=== PATIENT | male | born 1955 | race Caucasian/White ===

== ENCOUNTER 2019-09-26 13:23 | Emergency (ER) | payer OTHER, SELFPAY ==
--- NOTE | 2019-09-26 14:32 | PC.NURSE ---
pt left without being seen advised tot rerun if needed to be seen or s/s increased pt aware and agreeable to
== END 2019-09-26 14:32 | disposition left against medical advice (07) ==
DX: Z53.21 Procedure and treatment not carried out due to patient leaving prior to being seen by health care provider (principal)
CPT/HCPCS: 99199

== ENCOUNTER 2019-09-28 09:49 | Emergency (ER) | payer OTHER, SELFPAY ==
--- NOTE | ~2019-09-28 | US_ITS ---
EXAMINATION: US venous doppler [facility] DATE: 09/28/2019 11:23 INDICATION: Lower limb pain. TECHNIQUE: Grayscale ultrasound images without and with compression and Doppler ultrasound images of the bilateral lower extremity veins were obtained. COMPARISON: None. FINDINGS: The visualized portions of right common femoral vein, profunda (deep) femoral vein, femoral vein, pop liteal vein, peroneal veins, posterior tibial veins, and greater saphenous vein outflow are patent. The visualized portions of left common femoral vein, profunda femoral vein, femoral vein, popliteal v ein, peroneal veins, posterior tibial veins, and greater saphenous vein outflow are patent. IMPRESSION: 1. No deep venous thrombosis. Reviewed, dictated and finalized at location A.
--- NOTE | ~2019-09-28 | XR_ITS ---
EXAMINATION: XR chest 1V portable DATE: 09/28/2019 11:32 INDICATION: Swelling. TECHNIQUE: A single frontal view of the chest was obtained. COMPARISON: None. FINDINGS: The chest demonstrates clear lungs without pneumonia, pleural effusion, or pneumothorax. Th e heart size is normal. IMPRESSION: 1. No acute cardiopulmonary disease. Reviewed, dictated and finalized at location A.
[2019-09-28 09:52] VITALS: BP 150/67; PULSE 98; RESP 18; TEMP 36.3; O2SAT 100
[2019-09-28 10:53] LABS: Basophils Absolute Auto 0.1 K/mm3 (0.0-0.1); Basophils Percent Auto 0.6 % (0.2-1.2); Eosinophils Absolute Auto 0.4 K/mm3 (0-0.3); Eosinophils Percent Auto 3.4 % (0-4.4); Hematocrit 47.8 % (42.0-52.0); Hemoglobin 15.8 g/dL (14.0-18.0); Immature Granulocyte Absolute 0.06 K/mm3 (0.00-0.031); Immature Granulocyte Percent A 0.5 % (0-0.5); Lymphocytes Absolute Auto 2.67 K/mm3 (0.9-3.2); Mean Corpuscular HGB Conc 33.1 g/dl (32-36); Mean Corpuscular Hemoglobin 29.1 pg (26-34); Mean Platelet Volume 10.9 fl (7.4-10.4); Monocytes Absolute Auto 0.8 K/mm3 (0.1-0.6); Monocytes Percent Auto 6.7 % (2.6-8.5); Neutrophils Absolute Auto 8.1 K/mm3 (1.3-6.7); Neutrophils Percent Auto 66.8 % (45.5-73.1); Platelet Count Result 252 k/mm3 (150-375); Red Blood Count 5.43 M/mm3 (4.6-6.20); Red Cell Distribution Width 14.5 % (11.5-14.5); White Blood Count 12.2 K/mm3 (4.5-10.0)
[2019-09-28 11:03] LABS: INR 1.1; Prothrombin Time 13.9 Seconds (11.1-14.7)
[2019-09-28 11:04] LABS: Partial Thromboplastin Time 25.8 SECONDS (22.3-36.8)
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
--- NOTE | 2019-09-28 11:09 | PC.NURSE ---
Report to RYAN Acosta, to continue care.
[2019-09-28 11:10] LABS: Alanine Aminotransferase 22 U/L (4-50); Albumin Level 4.2 g/dL (3.5-5.1); Alkaline Phosphatase 166 U/L (38-126); Aspartate Amino Transferase 21 U/L (17-59); Bilirubin,Total 0.4 mg/dL (0.2-1.3); Blood Urea Nitrogen 19 mg/dL (9-20); Calcium 8.6 mg/dL (8.4-10.2); Carbon Dioxide 26 mmol/L (22-30); Chloride 101 mmol/L (98-107); Estimated CRCL calculation 68 ml/min; Estimated Glomerular Filt Rate > 60; Glucose 185 mg/dL (75-110); Potassium 3.5 mmol/L (3.4-5.0); Sodium 138 mmol/L (137-145)
[2019-09-28 11:19] LABS: NT Pro B Type Natriuretic Pept 180 PG/ML (5-100); Troponin I < 0.012 ng/mL (0.000-0.034)
[2019-09-28 11:42] VITALS: BP 148/92; PULSE 90; RESP 17; O2SAT 97
[2019-09-28 12:53] VITALS: BP 142/76; PULSE 90; RESP 14; O2SAT 97
== END 2019-09-28 13:13 | disposition home or self-care (01) ==
PROVIDERS: Emergency Medicine Emergency Medical Services; Emergency Provider Emergency Medicine
DX: L03.116 Cellulitis of left lower limb (principal); J44.9 Chronic obstructive pulmonary disease, unspecified; F17.200 Nicotine dependence, unspecified, uncomplicated
CPT/HCPCS: 36415; 71045; 80053; 83880; 84484; 85025; 85610; 85730; 86140; 93970; 99284

== ENCOUNTER 2019-10-31 08:01 | Outpatient (CLI) | payer OTHER, SELFPAY ==
--- NOTE | 2019-10-31 | ECHO_ITS ---
Patient Info Name: Jordan Crawford Age: 63 years : 1955 Gender: Male Ht: 72 in Wt: 205 lbs BSA: 2.19 m2 BP: 146 / 88 mmHg Heart Rhythm: Sinus Rhythm Technical Quality: Good Exam Date: 10/31/2019 8:30 AM Exam Location: [facility] Patient Status: Outpatient Admit Date: 10/31/2019 Staff Ordering Physician: Benito, Marlys ABBOTT Auto Claims Adjuster: Tory Kay RDCS Attending Provider: Benito, Marlys ABBOTT Referring Physician: Benito CONDON; Exam Type: CA echo doppler color flow Study Info Indications I50.9 - Heart failure, unspecified Complete two-dimensional, color flow and Doppler transthoracic echocardiogram is performed. Summary 1. Left ventricular chamber dimension is mildly enlarged. 2. Left ventricular systolic function is normal, estimated at 65-70%. 3. There is mildly increased left ventricular wall thickness. 4. The left ventricular diastolic function is grade I diastolic dysfunction. 5. Left atrial chamber dimension is mildly enlarged. 6. There is mild mitral valve regurgitation. 7. There is mild tricuspid valve regurgitation. 8. There is mild pulmonic regurgitation. Left Ventricle Left ventricular chamber dimension is mildly enlarged. Left ventricular systolic function is normal, estimated at 65-70%. There is mildly increased left ventricular wall thickness. The left ventricular diastolic function is grade I diastolic dysfunction. Right Ventricle Right ventricular chamber dimension is normal. Right ventricular systolic function is normal. Left Atria Left atrial chamber dimension is mildly enlarged. Right Atria Right atrial chamber dimension is normal. Atrial Septum Intact interatrial septum visualized by color flow imaging. Aortic Valve The aortic valve is trileaflet. There is mild aortic valve sclerosis. There is no aortic valve stenosis. There is trace aortic valve regurgitation. Pulmonic Valve The pulmonic valve is normal. There is no pulmonic valve stenosis. There is mild pulmonic regurgitation. Mitral Valve The mitral valve has thickened leaflets. There is no mitral valve stenosis. There is mild mitral valve regurgitation. Tricuspid Valve The tricuspid valve leaflets are normal. There is no significant tricuspid valve stenosis. There is mild tricuspid valve regurgitation. No pulmonary hypertension, estimated pulmonary arterial systolic pressure is 30 mmHg. Pericardium/Pleural The pericardium appears normal. There is no pericardial effusion. Inferior Vena Cava Normal inferior vena cava with >50% collapse upon inspiration consistent with normal right atrial pressure, 5 mmHg. Aorta The aortic root size at the sinus of Valsalva is normal. The prox ascending aorta size is normal. Left Ventricular Outflow Tract Name Value Normal LVOT 2D LVOT Diameter 2.0 cm LVOT Doppler LVOT Peak Gradient 6 mmHg LVOT Mean Gradient 3 mmHg LVOT VTI 27 cm LVOT VTI/AV VTI Ratio 0.8 LVOT Stroke Volume 84
== END 2019-10-31 08:02 | disposition home or self-care (01) ==
LOC: ANHCARD 08:04
PROVIDERS: PCP Physician Assistant; Visit Provider Physician Assistant
DX: I50.9 Heart failure, unspecified (principal); I51.7 Cardiomegaly; I08.1 Rheumatic disorders of both mitral and tricuspid valves
CPT/HCPCS: 93306

== ENCOUNTER 2020-09-07 14:44 | Outpatient (CLI) | payer OTHER, SELFPAY ==
--- NOTE | ~2020-09-07 | US_ITS ---
US arterial ankle brachial ind INDICATION: Peripheral vascular disease TECHNIQUE: Segmental pressures and plethysmographic and Doppler waveforms of the brachial and lower e xtremity arteries were obtained. COMPARISON: None. FINDINGS: Right and left brachial artery pressures of 131 mm Hg and 132 mm Hg, respectively, are concordant (no rmal difference <= 30 mmHg). The right ankle-brachial index (ALY) is 1.05 (normal >= 0.9-1.0). The right great toe-brachial index (TBI) is 0.65 (normal >= 0.60). The left ALY is 0.94. The left TBI is 0.7. IMPRESSION: 1. Normal bilateral ankle and toe brachial indices. Reviewed, dictated and finalized at location B.
== END 2020-09-07 14:45 | disposition home or self-care (01) ==
LOC: ANHIMG 14:47
PROVIDERS: PCP Physician Assistant; Visit Provider Physician Assistant
DX: I73.9 Peripheral vascular disease, unspecified (principal)
CPT/HCPCS: 93922

== ENCOUNTER 2020-09-10 14:01 | Outpatient (CLI) | payer OTHER, SELFPAY ==
--- NOTE | ~2020-09-10 | CT_ITS ---
EXAMINATION: CT lung screening DATE: 09/10/2020 14:29 INDICATION: Personal history of tobacco dependence, current smoker with 50 to pack year history TECHNIQUE: Computed tomography (CT) of the chest was performed without intravenous contrast. The dose -length product (DLP) was 278.72 mGy-cm. Automated exposure control and iterative reconstruction tech Sample[employer] were employed. COMPARISON: None FINDINGS: There is a 4 mm nodule of the right upper lobe on image 43. There is a 2 mm nodule in the r ight upper lobe on image 66. A 2 mm nodule is right lower lobe on image 87. There is moderate emphyse ma. There is no pleural effusion or pneumothorax. Calcified right hilar lymph nodes are consistent wi th old granulomatous disease. No pathologically enlarged thoracic lymph nodes are identified. The hea rt size is normal. Calcified coronary artery atherosclerosis is noted. There are multiple fat-contain ing epigastric hernias. Severe spondylosis is noted in the lower cervical spine. There is moderate th oracic spondylosis. IMPRESSION: 1. Lung-RADS category 2: Benign appearance or behavior. Continue annual screening with noncontrast lo w-dose chest CT in 12 months. Reviewed, dictated and finalized at location A. IMPRESSION: 1. Lung-RADS category 2: Benign appearance or behavior. Continue annual screeni ng with noncontrast low-dose chest CT in 12 months.
== END 2020-09-10 14:02 | disposition home or self-care (01) ==
LOC: ANHIMG 14:06
PROVIDERS: PCP Physician Assistant; Visit Provider Physician Assistant
DX: Z12.2 Encounter for screening for malignant neoplasm of respiratory organs (principal); Z87.891 Personal history of nicotine dependence
CPT/HCPCS: 71271

== ENCOUNTER 2022-05-10 13:05 | Outpatient (CLI) | payer MEDICARE, MEDICAID, SELFPAY ==
--- NOTE | ~2022-05-10 | US_ITS ---
US breast LT limited DATE: 05/10/2022 13:54 INDICATION: Left breast lump TECHNIQUE: Real-time and color flow sonographic imaging of left breast mass at 9:00 5 cm from nipple COMPARISON: None FINDINGS: There is a relatively superficial parallel circumscribed heterogeneous largely hyperechoic mass measuring 2.9 x 0.9 x 2.2 cm, without internal vascularity or posterior shadowing. The sonograph ic features are benign, most likely due to lipoma. IMPRESSION: Benign appearing probable lipoma Reviewed, dictated and finalized at Location A. Reviewed, dictated and finalized at location A. APEUTIC DIETITIAN
== END 2022-05-10 13:06 | disposition home or self-care (01) ==
PROVIDERS: PCP Physician Assistant; Visit Provider Physician Assistant
DX: N63.20 Unspecified lump in the left breast, unspecified quadrant (principal); R92.8 Other abnormal and inconclusive findings on diagnostic imaging of breast
CPT/HCPCS: 76642

== ENCOUNTER 2023-09-26 13:56 | Outpatient (CLI) | payer MEDICARE, MEDICAID, SELFPAY ==
--- NOTE | ~2023-09-26 | CT_ITS ---
CT Scan of the Chest without Contrast: Clinical Indication: Lung cancer screening, nicotine dependence Technique: Contiguous sections were acquired throughout the chest without intravenous contrast. Dose reduction technique was used on this scan by utilizing automated exposure control and iterative recon struction technique. The dose-length product (DLP) was 264.75 mGy-cm. COMPARISON: 09/10/2020 Findings: There is no evidence of any significant mediastinal, hilar or axillary lymphadenopathy. Coronary elroy ry calcification are present. There is no evidence of pleural or pericardial effusion. The lungs are clear. No pulmonary nodules or infiltrates are noted. There is mild biapical emphysema. Images through the upper abdomen reveal no abnormalities. Stable chronic compression deformities in t he midthoracic spine. Impression: Lung RADS 1: Negative. 12 month follow-up screening CT advised. Mild biapical emphysema. Reviewed, dictated and finalized at [facility]. Impression: Lung RADS 1: Negative. 12 month follow-up screening CT advised. Mild biapical emphysema.
== END 2023-09-26 13:57 | disposition home or self-care (01) ==
LOC: ANHIMG 13:58
PROVIDERS: PCP Physician Assistant; Visit Provider Physician Assistant
DX: Z12.2 Encounter for screening for malignant neoplasm of respiratory organs (principal); J43.9 Emphysema, unspecified; Z87.891 Personal history of nicotine dependence
CPT/HCPCS: 71271

== ENCOUNTER 2023-10-11 15:04 | Outpatient (CLI) | payer MEDICARE, MEDICAID, SELFPAY ==
--- NOTE | 2023-10-11 | ECHO_ITS ---
Patient Info Name: Jordan Crawford Age: 67 years : 1955 Gender: Male Ht: 71 in Wt: 235 lbs BSA: 2.34 m2 HR: 75 bpm BP: 130 / 78 mmHg Heart Rhythm: Sinus Rhythm Technical Quality: Good Exam Date: 10/11/2023 3:31 PM Exam Location: [facility] Patient Status: Outpatient Admit Date: 10/11/2023 Staff Ordering Physician: BenitoMarlys Home Improvement Installer: Daniel Morris RDCS Attending Provider: Benito, Marlys ABBOTT Referring Physician: Benito CONDON; Exam Type: CA echo doppler color flow Study Info Indications - DYSPNEA Complete two-dimensional, color flow and Doppler transthoracic echocardiogram is performed. Summary 1. Complete two-dimensional, color flow and Doppler transthoracic echocardiogram is performed. 2. Left ventricular chamber dimension is normal. 3. Left ventricular systolic function is normal, estimated at 60-65%. 4. The left ventricular diastolic function is grade I diastolic dysfunction. 5. E/e' 11 is mildly elevated. 6. No pulmonary hypertension, estimated pulmonary arterial systolic pressure is 26 mmHg. Left Ventricle E/e' 11 is mildly elevated. Left ventricular chamber dimension is normal. Left ventricular systolic function is normal, estimated at 60-65%. The left ventricular diastolic function is grade I diastolic dysfunction. Right Ventricle Right ventricular systolic function is normal and with normal TAPSE 2.8 cm. Right ventricular chamber dimension is normal. Left Atria Left atrial chamber dimension is normal. Right Atria Right atrial chamber dimension is normal. Aortic Valve The aortic valve is trileaflet. There is no aortic valve stenosis. There is no aortic valve regurgitation. Pulmonic Valve There is no pulmonic regurgitation. Mitral Valve There is no mitral valve stenosis. There is no mitral valve regurgitation. Tricuspid Valve There is no tricuspid valve regurgitation. No pulmonary hypertension, estimated pulmonary arterial systolic pressure is 26 mmHg. Pericardium/Pleural There is no pericardial effusion. Inferior Vena Cava Normal inferior vena cava with >50% collapse upon inspiration consistent with normal right atrial pressure, 5 mmHg. Aorta The aortic root size at the sinus of Valsalva is normal. Left Ventricular Outflow Tract Name Value Normal LVOT 2D LVOT Diameter 2.0 cm LVOT Doppler LVOT Peak Gradient 13 mmHg LVOT Mean Gradient 6 mmHg LVOT VTI 28 cm LVOT VTI/AV VTI Ratio 0.9 LVOT Stroke Volume 89 ml LVOT CO 6.7 l/min LVOT CI 2.9 l/min/m2 Pulmonic Valve Name Value Normal PV Doppler PV Peak Gradient 8 mmHg Mitral Valve Name Value Normal
== END 2023-10-11 15:05 | disposition home or self-care (01) ==
PROVIDERS: PCP Physician Assistant; Visit Provider Physician Assistant
DX: I51.89 Other ill-defined heart diseases (principal)
CPT/HCPCS: 93306

== ENCOUNTER 2023-11-03 15:33 | Outpatient (CLI) | payer MEDICARE, MEDICAID, SELFPAY ==
--- NOTE | ~2023-11-03 | US_ITS ---
EXAMINATION: US venous doppler [facility] DATE: 11/03/2023 17:14 INDICATION: Lower limb swelling, pain and erythema TECHNIQUE: Grayscale ultrasound images without and with compression and Doppler ultrasound images of the left lower extremity veins were obtained. COMPARISON: None. FINDINGS: The visualized portions of left common femoral vein, profunda (deep) femoral vein, femoral vein, popl iteal vein, peroneal veins, posterior tibial veins, gastrocnemius vein and greater saphenous vein out flow are patent. IMPRESSION: 1. No deep venous thrombosis in the left lower limb. Reviewed, dictated and finalized at location A.
== END 2023-11-03 15:34 | disposition home or self-care (01) ==
LOC: ANHIMG 15:35
PROVIDERS: PCP Physician Assistant; Visit Provider Physician Assistant
DX: R60.0 Localized edema (principal)
CPT/HCPCS: 93971